=== PATIENT | male | born 1965 | race Caucasian/White ===

== ENCOUNTER 2020-08-23 10:19 | Outpatient (REF) | payer OTHER, SELFPAY | END 2020-08-23 10:20 | disposition home or self-care (01) | LOC: HO.HMGCLDS 10:19 | PROVIDERS: Visit Provider Internal Medicine | DX: Z20.828 Contact with and (suspected) exposure to other viral communicable diseases (principal) | CPT/HCPCS: C9803; U0003 ==

== ENCOUNTER 2021-05-18 14:11 | Outpatient (REF) | payer OTHER, SELFPAY | END 2021-05-18 14:12 | disposition home or self-care (01) | LOC: HO.LNP 14:11 | PROVIDERS: Visit Provider Hospitalist | DX: B34.9 Viral infection, unspecified (principal); Z20.822 Contact with and (suspected) exposure to COVID-19 | CPT/HCPCS: U0003; U0005 ==